=== PATIENT | female | born 1960 | race Caucasian/White ===

== ENCOUNTER 2019-11-19 15:30 | Observation (INO) | payer BC, MEDICARE ==
--- NOTE | 2019-11-19 16:24 | EDM.PDOC ---
ED [facility] GENERAL MEDICAL PROBLEM - General Chief Complaint: Chest Pain Stated Complaint: CHEST PAIN Time Seen by Provider: 11/19/19 16:20 Source of Information: Reports: Patient History Limitations: Reports: No Limitations - History of Present Illness INITIAL COMMENTS - FREE TEXT/NARRATIVE: Patient is a 51-year-old female with a past medical history of obesity, diabetes , ischemic heart disease presenting with a chief complaint of chest discomfort. Patient states she had 2 episodes of chest discomfort associated with nausea and shortness of breath. Symptoms started at rest. The symptoms were relieved by sublingual nitroglycerin. Patient is currently pain-free. Patient states she does not normally get the symptoms and last felt this approximately 9 months ago. Patient denies recent illness, fevers, cough, lower extremity swelling, recent travel. In addition to that documented in the HPI above, the additional ROS was obtained : Constitutional: Denies fevers or chills Eyes: Denies vision changes ENMT: Denies sore throat CV: Per HPI Resp: Per HPI GI: Denies vomiting or diarrhea : Denies painful urination MSK: Denies recent trauma Skin: Denies new rashes Neuro: Denies new numbness or tingling or weakness Endocrine: Denies unexpected weight loss Heme: Denies bleeding disorders I have reviewed the triage vital signs Const: Well nourished, well developed, appears stated age Eyes: PERRL, no conjunctival injection HENT: NCAT, Neck supple without meningismus CV: RRR, Warm, well-perfused extremities RESP: CTAB, Unlabored respiratory effort GI: soft, non-tender, non-distended, no masses MSK: No gross deformities appreciated Skin: Warm, dry. No rashes Neuro: Alert, slate handler II-XII grossly intact. Sensation and motor function of extremities grossly intact. Psych: Appropriate mood and affect Assessment and plan: Patient is a 59-year-old female presenting with chest pain. Chest pain is highly concerning for unstable angina versus acute coronary syndrome. Patient' s EKG on arrival to the emergency room was nonischemic with possible Q waves in V1 and V2. However, patient does have a history of septal OR. I believe these findings are old. Patient's labs including troponin were within normal limits. Chest x-ray was negative. Other considerations were pulmonary embolism however patient does not have any major PE risk factors. Aortic dissection was considered however seems unlikely based on the nature of history and exam. Patient has a heart score of 6 and will require observation on telemetry in the hospital. - Related Data Allergies Allergy/AdvReac Type Severity Reaction Status Date / Time atenolol Allergy Other Verified 11/19/19 15:36 lisinopril Allergy Cough Verified 11/19/19 15:36 Penicillins Allergy Airway Verified 11/19/19 15:36 Tightness Home Meds: Home Meds Aspirin [Adult Low Dose Aspirin EC] 81 mg PO DAILY 11/19/19 [History] Gabapentin [Neurontin] 600 mg PO TID 11/19/19 [History] Levothyroxine Sodium [Synthroid] 75 mcg PO DAILY 11/19/19 [History] Omeprazole Magnesium [Prilosec Otc] 40 mg PO DAILY 11/19/19 [History] Sertraline [Zoloft] 100 mg PO DAILY 11/19/19 [History] Sucralfate [Carafate] 1 gm PO QID 11/19/19 [History] metFORMIN [Glucophage XR] 500 mg PO BID 11/19/19 [History] Past Medical History Psychiatric History: Reports: Depression Endocrine/Metabolic History: Reports: Diabetes, Type II, Hypothyroidism - Infectious Disease History Infectious Disease History: Reports: Chicken Pox, Measles - Past Surgical History GI Surgical History: Reports: Bariatric Procedure Musculoskeletal Surgical History: Reports: Shoulder Replacement Social & Family History - Family History Family Medical History: Noncontributory - Tobacco Use Smoking Status *Q: Former Smoker Used Tobacco, but Quit: Yes Month/Year Tobacco Last Used: 2004 - Caffeine Use Caffeine Use: Reports: None - Recreational Drug Use Recreational Drug Use: Yes Recreational Drug Type: Reports: Marijuana/Hashish Recreational Drug Use Frequency: Weekly ED ROS GENERAL - Review of Systems Review Of Systems: See Below ED EXAM, GENERAL - Physical Exam Exam: See Below Course - Vital Signs Last Recorded V/S: Last Vital Signs Temp 36.1 C 11/19/19 15:39 Pulse 59 L 11/19/19 16:25 Resp 18 11/19/19 16:25 BP 159/91 H 11/19/19 16:25 Pulse Ox 98 11/19/19 16:25 - Orders/Labs/Meds Orders: Active Orders 24 hr Category Date Time Status Admission Status [Patient Status] [ADT] Stat ADT 11/19/19 16:59 Active EKG 12 Lead [EKG Documentation Completion] [RC] STAT Care 11/19/19 15:45 Active Labs: Laboratory Tests 11/19/19 11/19/19 Range/Units 15:40 15:40 WBC 6.65 (4.0-11.0) K/uL RBC 5.14 (4.30-5.90) M/uL Hgb 14.8 (12.0-16.0) g/dL Hct 44.7 (36.0-46.0) % MCV 87.0 (80.0-98.0) fL MCH 28.8 (27.0-32.0) pg MCHC 33.1 (31.0-37.0) g/dL RDW Std Deviation 42.9 (28.0-62.0) fl RDW Coeff of Grupo 13 (11.0-15.0) % Plt Count 203 (150-400) K/uL MPV 10.00 (7.40-12.00) fL Neut % (Auto) 51.5 (48.0-80.0) % Lymph % (Auto) 33.5 (16.0-40.0) % [place] % (Auto) 9.3 (0.0-15.0) % Eos % (Auto) 5.1 (0.0-7.0) % Baso % (Auto) 0.6 (0.0-1.5) % Neut # (Auto) 3.4 (1.4-5.7) K/uL Lymph # (Auto) 2.2 (0.6-2.4) K/uL [place] # (Auto) 0.6 (0.0-0.8) K/uL Eos # (Auto) 0.3 (0.0-0.7) K/uL Baso # (Auto) 0.0 (0.0-0.1) K/uL Nucleated RBC % 0.0 /100WBC Nucleated RBCs # 0 K/uL Sodium 144 (136-145) mmol/L Potassium 4.3 (3.5-5.1) mmol/L Chloride 106 (98-107) mmol/L Carbon Dioxide 28.6 (21.0-32.0) mmol/L BUN 15 (7.0-18.0) mg/dL Creatinine 0.9 (0.6-1.0) mg/dL Est Cr Clr Drug Dosing 63.78 mL/min Estimated GFR (MDRD) > 60.0 ml/min Glucose 94 (74-106) mg/dL Calcium 9.2 (8.5-10.1) mg/dL Total Bilirubin 0.3 (0.2-1.0) mg/dL AST 24 (15-37) IU/L ALT 28 (14-63) IU/L Alkaline Phosphatase 98 (46-116) U/L Troponin I < 0.050 (0.000-0.056) ng/mL Total Protein 7.8 (6.4-8.2) g/dL Albumin 3.8 (3.4-5.0) g/dL Globulin 4.0 (2.6-4.0) g/dL Albumin/Globulin Ratio 0.9 (0.9-1.6) Meds: Medications Discontinued Medications Generic Name Dose Route Start Last Admin Trade Name Freq PRN Reason Stop Dose Admin Ondansetron HCl 4 mg 11/19/19 17:08 11/19/19 17:15 Zofran IVPUSH 11/19/19 17:09 4 mg ONETIME ONE Administration Departure - Departure Time of Disposition: 17:24 Disposition: Refer to Observation Clinical Impression: Chest pain Referrals: PCP,Not In Area [Primary Care Provider] - Forms: ED Department Discharge Sepsis Event Note - Evaluation Sepsis Screening Result: No Definite Risk - Focused Exam Vital Signs: Vital Signs Temp Pulse Resp BP Pulse Ox 11/19/19 16:25 59 L 18 159/91 H 98 11/19/19 15:39 36.1 C 77 18 178/77 H 97 Date Exam was Performed: 11/19/19 Time Exam was Performed: 17:23 - My Orders Last 24 Hours: My Active Orders 11/19/19 15:45 EKG 12 Lead [EKG Documentation Completion] [RC] STAT 11/19/19 16:59 Admission Status [Patient Status] [ADT] Stat - Assessment/Plan Last 24 Hours: My Active Orders 11/19/19 15:45 EKG 12 Lead [EKG Documentation Completion] [RC] STAT 11/19/19 16:59 Admission Status [Patient Status] [ADT] Stat
[2019-11-19 16:34] LABS: BLOOD UREA NITROGEN,BUN 15 mg/dL (7.0-18.0); CARBON DIOXIDE,CO2 28.6 mmol/L (21.0-32.0); CHLORIDE,CL 106 mmol/L (98-107); GLUCOSE RANDOM 94 mg/dL (74-106); POTASSIUM,K 4.3 mmol/L (3.5-5.1); SODIUM,NA 144 mmol/L (136-145)
--- NOTE | 2019-11-19 16:56 | CR ---
Chest: Portable view of the chest was obtained. Comparison: No previous chest x-rays available. Heart size and mediastinum are normal. Lungs are clear. Left shoulder prosthesis is noted. Degenerative endplate spurring is seen within the spine with mild scoliosis. Impression: 1. Nothing acute is appreciated on portable chest x-ray. Diagnostic code #2 This report was dictated in [place] Standard Time
[2019-11-19] MEDS ORDERED: Ondansetron 4 MG/2 ML SDV IVPUSH ONE (17:08)
[2019-11-19] MEDS ORDERED: Heparin Sodium 5,000 Units/ML Vial IVPUSH ONE (17:53)
[2019-11-19] MEDS ORDERED: Melatonin 3 MG Tab PO PRN (17:55)
[2019-11-19] MEDS: Pantoprazole 40 MG Tab.CR PO SCH (18:41)
[2019-11-19] MEDS: Sucralfate 1 GM Tab PO SCH (18:41)
--- NOTE | 2019-11-19 18:41 | PCM.HP.2 ---
<Odette He - Last Filed: 11/19/19 20:24> H&P History of Present Illness - General Date of Service: 11/19/19 Admit Problem/Dx: Admission Diagnosis/Problem Admission Diagnosis/Problem Chest pain Source of Information: Patient History Limitations: Reports: No Limitations - History of Present Illness Initial Comments - Free Text/Narative: Patient is a 59-year-old female with a significant past medical history of diabetes, hypothyroidism, chronic GI bleed, depression, chronic back pain, concerns for previous anterior septal [place]: presenting today for experiencing a episode of 4 out of 10 substernal chest pain, nonradiating for 10 to 15 minutes. Patient endorses using 1 dose of nitro-glycerin with relief of pain; however developed similar pain 40 minutes thereafter. Patient took another dose of nitroglycerin and proceeded to the emergency department. Mentions having similar episodes within the past 12 months; was seen by Dr. Ochoa of cardiology in [facility] [place] for which a catheterization was performed; showing no blockages of the coronary arteries. Patient also has a chronic GI ulcer for which she has been scoped in August 2019: EGD and colonoscopy; showing a chronic healing ulcer on EGD; negative H. pylori; patient was continued on PPI and sucralfate treatment moving forward. Mentions this is possibly from her overuse of NSAIDs. ED course: Negative troponin. Unremarkable labs. Chest x-ray negative. Blood pressure marginally elevated/no history of hypertension. Bedside; patient denying any pain now. Denies any fevers, chills, body aches, recent diarrhea, constipation. No other acute issues at this time - Related Data Allergies/Adverse Reactions: Allergies Allergy/AdvReac Type Severity Reaction Status Date / Time atenolol Allergy Other Verified 11/19/19 18:27 lisinopril Allergy Cough Verified 11/19/19 18:27 Penicillins Allergy Airway Verified 11/19/19 18:27 Tightness Sulfa (Sulfonamide Allergy Rash Verified 11/19/19 18:27 Antibiotics) Home Medications: Home Meds Aspirin [Adult Low Dose Aspirin EC] 81 mg PO DAILY 11/19/19 [History] Cyclobenzaprine [Flexeril] 10 mg PO ASDIRECTED PRN 11/19/19 [History] Famotidine 40 mg PO BEDTIME 11/19/19 [History] Gabapentin [Neurontin] 600 mg PO TID 11/19/19 [History] Levothyroxine Sodium [Synthroid] 75 mcg PO DAILY 11/19/19 [History] Omeprazole Magnesium [Prilosec Otc] 40 mg PO DAILY 11/19/19 [History] Sertraline [Zoloft] 100 mg PO DAILY 11/19/19 [History] Sucralfate [Carafate] 1 gm PO QID 11/19/19 [History] metFORMIN [Glucophage XR] 500 mg PO BID 11/19/19 [History] Past Medical History Other Cardiovascular History: Ischemic heart disease - patient had cardiac cath but vessels were open. Respiratory History: Reports: Asthma, COPD Gastrointestinal History: Reports: GI Bleed Other Gastrointestinal History: Patient currently has a bleeding ulcer. Psychiatric History: Reports: Depression Endocrine/Metabolic History: Reports: Diabetes, Type II, Hypothyroidism - Infectious Disease History Infectious Disease History: Reports: Chicken Pox, Measles - Past Surgical History GI Surgical History: Reports: Bariatric Procedure Musculoskeletal Surgical History: Reports: Shoulder Replacement Other Musculoskeletal Surgeries/Procedures:: Left total shoulder replacement Social & Family History - Family History Family Medical History: Noncontributory - Tobacco Use Smoking Status *Q: Former Smoker Used Tobacco, but Quit: Yes Month/Year Tobacco Last Used: 2004 - Caffeine Use Caffeine Use: Reports: Coffee Caffeine Use Comment: 5 cups a day - Recreational Drug Use Recreational Drug Use: No Recreational Drug Type: Reports: Marijuana/Hashish Recreational Drug Use Frequency: Weekly H&P Review of Systems - Review of Systems: Review Of Systems: See Below General: Denies: Fever, Chills, Malaise, Weakness, Fatigue HEENT: Reports: No Symptoms. Denies: Headaches Pulmonary: Denies: Shortness of Breath, Wheezing, Cough Cardiovascular: Denies: Chest Pain, Palpitations, Dyspnea on Exertion, Edema, Syncope Gastrointestinal: Denies: Abdominal Pain, Constipation, Diarrhea, Decreased Appetite, Nausea Genitourinary: Reports: No Symptoms. Denies: Dysuria, Frequency, Burning, Pain , Urgency, Incontinence Musculoskeletal: Reports: No Symptoms Skin: Reports: No Symptoms Psychiatric: Reports: No Symptoms Neurological: Reports: No Symptoms ( chronic hx. of GI bleed ) Exam - Exam Exam: See Below - Vital Signs Vital Signs: Last Vital Signs Temp 96.7 F 11/19/19 18:08 Pulse 61 11/19/19 18:08 Resp 14 11/19/19 18:08 BP 150/76 H 11/19/19 18:08 Pulse Ox 98 11/19/19 18:08 Weight: 112.355 kg - Exam General: Alert, Oriented, Cooperative HEENT: EOMI, Pupils Equal, Pupils Reactive Neck: Supple, Trachea Midline Lungs: Clear to Auscultation, Normal Respiratory Effort Cardiovascular: Regular Rate, Regular Rhythm GI/Abdominal Exam: Other (epigastric tenderness; no rebound tenderness. no organomegaly ) Back Exam: Normal Inspection, Full Range of Motion. No: Paraspinal Tenderness, Vertebral Tenderness Extremities: Non-Tender, No Pedal Edema Skin: Warm, Dry Neurological: Cranial Nerves Intact Neuro Extensive - Mental Status: Alert, Oriented x3, Normal Mood/Affect Psychiatric: Alert, Normal Affect, Normal Mood - Patient Data Lab Results Last 24 hrs: Laboratory Results - last 24 hr 11/19/19 11/19/19 11/19/19 Range/Units 15:40 15:40 18:24 WBC 6.65 (4.0-11.0) K/uL RBC 5.14 (4.30-5.90) M/uL Hgb 14.8 (12.0-16.0) g/dL Hct 44.7 (36.0-46.0) % MCV 87.0 (80.0-98.0) fL MCH 28.8 (27.0-32.0) pg MCHC 33.1 (31.0-37.0) g/dL RDW Std Deviation 42.9 (28.0-62.0) fl RDW Coeff of Grupo 13 (11.0-15.0) % Plt Count 203 (150-400) K/uL MPV 10.00 (7.40-12.00) fL Neut % (Auto) 51.5 (48.0-80.0) % Lymph % (Auto) 33.5 (16.0-40.0) % [place] % (Auto) 9.3 (0.0-15.0) % Eos % (Auto) 5.1 (0.0-7.0) % Baso % (Auto) 0.6 (0.0-1.5) % Neut # (Auto) 3.4 (1.4-5.7) K/uL Lymph # (Auto) 2.2 (0.6-2.4) K/uL [place] # (Auto) 0.6 (0.0-0.8) K/uL Eos # (Auto) 0.3 (0.0-0.7) K/uL Baso # (Auto) 0.0 (0.0-0.1) K/uL Nucleated RBC % 0.0 /100WBC Nucleated RBCs # 0 K/uL Sodium 144 (136-145) mmol/L Potassium 4.3 (3.5-5.1) mmol/L Chloride 106 (98-107) mmol/L Carbon Dioxide 28.6 (21.0-32.0) mmol/L BUN 15 (7.0-18.0) mg/dL Creatinine 0.9 (0.6-1.0) mg/dL Est Cr Clr Drug Dosing 63.78 mL/min Estimated GFR (MDRD) > 60.0 ml/min Glucose 94 (74-106) mg/dL POC Glucose 85 (60-110) mg/dL Calcium 9.2 (8.5-10.1) mg/dL Total Bilirubin 0.3 (0.2-1.0) mg/dL AST 24 (15-37) IU/L ALT 28 (14-63) IU/L Alkaline Phosphatase 98 (46-116) U/L Troponin I < 0.050 (0.000-0.056) ng/mL Total Protein 7.8 (6.4-8.2) g/dL Albumin 3.8 (3.4-5.0) g/dL Globulin 4.0 (2.6-4.0) g/dL Albumin/Globulin Ratio 0.9 (0.9-1.6) Result Diagrams: 11/19/19 15:40 11/19/19 15:40 Sepsis Event Note - Evaluation Sepsis Screening Result: No Definite Risk - Focused Exam Vital Signs: Vital Signs Temp Pulse Resp BP Pulse Ox 11/19/19 18:08 96.7 F 61 14 150/76 H 98 11/19/19 17:35 62 18 152/83 H 97 11/19/19 16:25 59 L 18 159/91 H 98 11/19/19 15:39 96.9 F 77 18 178/77 H 97 Date Exam was Performed: 11/19/19 Time Exam was Performed: 20:24 Problem List Initiated/Reviewed/Updated: Yes Orders Last 24hrs: Active Orders 24 hr Category Date Time Status Admission Status [Patient Status] [ADT] Stat ADT 11/19/19 16:59 Active Activity as Tolerated [RC] .Routine Care 11/19/19 17:52 Active Antiembolic Devices [RC] PER UNIT ROUTINE Care 11/19/19 17:55 Active EKG 12 Lead [EKG Documentation Completion] [RC] STAT Care 11/19/19 15:45 Active [employer] Diet [DIET] Diet 11/19/19 Dinner Active TROPONIN I [CHEM] Q3H Lab 11/19/19 18:21 Received TROPONIN I [CHEM] Q3H Lab 11/19/19 21:05 Ordered Aspirin [Halfprin] Med 11/20/19 09:00 Active 81 mg PO DAILY Gabapentin [Neurontin] Med 11/19/19 22:00 Active 600 mg PO TID Levothyroxine Med 11/20/19 07:00 Active 75 mcg PO DAILY Melatonin Med 11/19/19 17:55 Active 3 mg PO BEDTIME PRN Pantoprazole [ProTONIX] Med 11/19/19 18:00 Active 40 mg PO DAILY Sertraline [Zoloft] Med 11/20/19 09:00 Active 100 mg PO DAILY Sucralfate [Carafate] Med 11/19/19 18:00 Active 1 gm PO QID metFORMIN [Glucophage XR] Med 11/19/19 21:00 Active 500 mg PO BID SCD [Sequential Compression Device] [OM.PC] Routine Oth 11/19/19 17:55 Ordered Code Status [Resuscitation Status] Routine Resus Stat 11/19/19 17:52 Ordered Medication Orders Aspirin (Halfprin) 81 mg PO DAILY CED Gabapentin (Neurontin) 600 mg PO TID CED Levothyroxine Sodium (Levothyroxine) 75 mcg PO DAILY CED Melatonin (Melatonin) 3 mg PO BEDTIME PRN PRN Reason: Insomnia Metformin HCl (Glucophage Xr) 500 mg PO BID CED Pantoprazole Sodium (Protonix) 40 mg PO DAILY CED Sertraline HCl (Zoloft) 100 mg PO DAILY CED Sucralfate (Carafate) 1 gm PO QID CED Assessment/Plan Comment:: Assessment 1. Chest pain: Acute coronary syndrome rule out 2. Past medical history: Type 2 diabetes, hypothyroidism, chronic GI ulcer, depression, chronic back pain Plan Admit to observation. Full code. Activity; up ad renita.. GI prophylaxis; pantoprazole 40. DVT prophylaxis; SCDs. Diet: Diabetic 1. Troponin every 3 hours x3. Repeat labs in a.m. continue to monitor patient on telemetry. Replete electrolytes as needed. Continue daily aspirin. SCDs. 2. Continue home medication except metformin: NovoLog with 3 times daily sliding scale. A1c added. We will also check a TSH. 3. Patient understood plan. <Yo Andrews - Last Filed: 11/23/19 20:42> H&P History of Present Illness - General Admit Problem/Dx: Admission Diagnosis/Problem Admission Diagnosis/Problem Chest pain Exam - Vital Signs Vital Signs: Last Vital Signs Temp 36.4 C 11/20/19 07:15 Pulse 69 11/20/19 08:40 Resp 16 11/20/19 08:40 BP 113/71 11/20/19 08:40 Pulse Ox 96 11/20/19 08:40 - Patient Data Result Diagrams: 11/20/19 05:40 11/20/19 05:40 Assessment/Plan Comment:: I performed a history and physical exam of the patient and discussed management with resident. I have reviewed the residents note and agree with documented findings and plan unless otherwise specified in my note.
[2019-11-19] MEDS ORDERED: Morphine 2 MG/ML Syringe IVPUSH PRN (19:18)
[2019-11-19] MEDS ORDERED: Acetaminophen 325 MG Tab PO PRN (19:19)
[2019-11-19] MEDS ORDERED: Ondansetron 4 MG Tab.DIS PO PRN (19:20)
[2019-11-19 19:43] LABS: HEMOGLOBIN A1C 5.9 % (4.5-6.2)
[2019-11-19] MEDS ORDERED: metFORMIN 500 MG Tab.ER PO SCH (21:00)
[2019-11-19] MEDS: Gabapentin 300 MG Cap PO SCH (22:02)
[2019-11-20] MEDS: Sucralfate 1 GM Tab PO SCH ×3 (00:46→11:43)
[2019-11-20] MEDS: Levothyroxine 25 MCG Tab PO SCH ×2 (06:14→08:38)
[2019-11-20] MEDS: Gabapentin 300 MG Cap PO SCH (06:14)
[2019-11-20 06:24] LABS: BLOOD UREA NITROGEN,BUN 18 mg/dL (7.0-18.0); CARBON DIOXIDE,CO2 31.5 mmol/L (21.0-32.0); CHLORIDE,CL 107 mmol/L (98-107); GLUCOSE RANDOM 100 mg/dL (74-106); POTASSIUM,K 4.5 mmol/L (3.5-5.1); SODIUM,NA 146 mmol/L (136-145)
[2019-11-20] MEDS: Insulin Aspart 100 Units/ML 3 ML Pen SUBCUT SCH ×2 (07:46→11:57)
[2019-11-20] MEDS: Pantoprazole 40 MG Tab.CR PO SCH (08:42)
[2019-11-20] MEDS ORDERED: Sertraline 25 MG Tab PO SCH (09:00)
[2019-11-20] MEDS ORDERED: Aspirin 81 MG Tab.EC PO SCH (09:00)
--- NOTE | 2019-11-20 11:30 | PCM.DCSUM1 ---
<Odette He - Last Filed: 11/20/19 14:28> Discharge Summary - Hospital Course Free Text/Narrative:: Discharge summary Admission diagnoses: Chest pain/acute coronary syndrome rule out Past medical history: Chronic GI ulcer, type 2 diabetes, hypothyroidism, morbid obesity Consultations: None Procedures: None Hospital course: Patient is a 59-year-old female with significant past medical history of type 2 diabetes, chronic GI ulcer, hypothyroidism: Presenting with 2 episodes of substernal nonradiating chest pain for which she used nitroglycerin at home. ED course: Troponin x3-; EKG showed concerns for previous old anteroseptal IN infarct; however patient has a history of catheterizations with no clot formation coronary arteries. Patient throughout her stay was afebrile and asymptomatic. Overnight patient did have one episode of dizziness; however glucose was nominal, blood pressure and vitals are stable, troponin negative; episode most likely vasovagal in nature; patient did not have any more chest pain dizziness or issues walk around or ambulating. Patient clinically stable, labs unremarkable. Patient was eating, urinating and stooling without issue; requesting to go home. Patient discharged and advised to follow-up with PCP and outpatient cardiology. Patient also advised to follow-up gastroenterology to evaluate for changes in chronic GI ulcer. Discharge condition: Stable Disposition: Home Discharge medications: Continue home medications Follow-up: PCP Cardiology - Discharge Data Discharge Date: 11/20/19 Discharge Disposition: Home, Self-Care 01 Condition: Stable - Referral to Home Health Primary Care Physician: PCP Not In Area - Discharge Plan Home Medications: Home Meds Aspirin [Adult Low Dose Aspirin EC] 81 mg PO DAILY 11/19/19 [History] Cyclobenzaprine [Flexeril] 10 mg PO ASDIRECTED PRN 11/19/19 [History] Famotidine 40 mg PO BEDTIME 11/19/19 [History] Gabapentin [Neurontin] 600 mg PO TID 11/19/19 [History] Levothyroxine Sodium [Synthroid] 75 mcg PO DAILY 11/19/19 [History] Omeprazole Magnesium [Prilosec Otc] 40 mg PO DAILY 11/19/19 [History] Sertraline [Zoloft] 100 mg PO DAILY 11/19/19 [History] Sucralfate [Carafate] 1 gm PO QID 11/19/19 [History] metFORMIN [Glucophage XR] 500 mg PO BID 11/19/19 [History] Patient Handouts: Nonspecific Chest Pain, [id number] Referrals: Judith Vo NP [Ordering Only Provider] - 12/02/19 12:20 pm (This was the last business intern you have seen since Dr. Atkins. Arrive 15 minutes early with a photo ID and insurance card. ) - Discharge Summary/Plan Comment DC Time >30 min.: No - Patient Data Vitals - Most Recent: Last Vital Signs Temp 97.5 F 11/20/19 07:15 Pulse 69 11/20/19 08:40 Resp 16 11/20/19 08:40 BP 113/71 11/20/19 08:40 Pulse Ox 96 11/20/19 08:40 Weight - Most Recent: 112.355 kg I&O - Last 24 hours: Intake & Output 11/19/19 11/20/19 11/20/19 22:59 06:59 14:59 Intake Total 600 Output Total 1290 Balance -690 Lab Results - Last 24 hrs: Laboratory Results - last 24 hr 11/19/19 11/19/19 11/19/19 Range/Units 15:40 15:40 18:21 WBC 6.65 (4.0-11.0) K/uL RBC 5.14 (4.30-5.90) M/uL Hgb 14.8 (12.0-16.0) g/dL Hct 44.7 (36.0-46.0) % MCV 87.0 (80.0-98.0) fL MCH 28.8 (27.0-32.0) pg MCHC 33.1 (31.0-37.0) g/dL RDW Std Deviation 42.9 (28.0-62.0) fl RDW Coeff of Grupo 13 (11.0-15.0) % Plt Count 203 (150-400) K/uL MPV 10.00 (7.40-12.00) fL Neut % (Auto) 51.5 (48.0-80.0) % Lymph % (Auto) 33.5 (16.0-40.0) % [place] % (Auto) 9.3 (0.0-15.0) % Eos % (Auto) 5.1 (0.0-7.0) % Baso % (Auto) 0.6 (0.0-1.5) % Neut # (Auto) 3.4 (1.4-5.7) K/uL Lymph # (Auto) 2.2 (0.6-2.4) K/uL [place] # (Auto) 0.6 (0.0-0.8) K/uL Eos # (Auto) 0.3 (0.0-0.7) K/uL Baso # (Auto) 0.0 (0.0-0.1) K/uL Nucleated RBC % 0.0 /100WBC Nucleated RBCs # 0 K/uL Sodium 144 (136-145) mmol/L Potassium 4.3 (3.5-5.1) mmol/L Chloride 106 (98-107) mmol/L Carbon Dioxide 28.6 (21.0-32.0) mmol/L BUN 15 (7.0-18.0) mg/dL Creatinine 0.9 (0.6-1.0) mg/dL Est Cr Clr Drug Dosing 63.78 mL/min Estimated GFR (MDRD) > 60.0 ml/min Glucose 94 (74-106) mg/dL POC Glucose (60-110) mg/dL Hemoglobin A1c (4.5-6.2) % Calcium 9.2 (8.5-10.1) mg/dL Magnesium (1.8-2.4) mg/dL Total Bilirubin 0.3 (0.2-1.0) mg/dL AST 24 (15-37) IU/L ALT 28 (14-63) IU/L Alkaline Phosphatase 98 (46-116) U/L Troponin I < 0.050 < 0.050 (0.000-0.056) ng/mL Total Protein 7.8 (6.4-8.2) g/dL Albumin 3.8 (3.4-5.0) g/dL Globulin 4.0 (2.6-4.0) g/dL Albumin/Globulin Ratio 0.9 (0.9-1.6) TSH 3rd Generation (0.36-3.74) uIU/mL 11/19/19 11/19/19 11/19/19 Range/Units 18:21 18:21 18:24 WBC (4.0-11.0) K/uL RBC (4.30-5.90) M/uL Hgb (12.0-16.0) g/dL Hct (36.0-46.0) % MCV (80.0-98.0) fL MCH (27.0-32.0) pg MCHC (31.0-37.0) g/dL RDW Std Deviation (28.0-62.0) fl RDW Coeff of Grupo (11.0-15.0) % Plt Count (150-400) K/uL MPV (7.40-12.00) fL Neut % (Auto) (48.0-80.0) % Lymph % (Auto) (16.0-40.0) % [place] % (Auto) (0.0-15.0) % Eos % (Auto) (0.0-7.0) % Baso % (Auto) (0.0-1.5) % Neut # (Auto) (1.4-5.7) K/uL Lymph # (Auto) (0.6-2.4) K/uL [place] # (Auto) (0.0-0.8) K/uL Eos # (Auto) (0.0-0.7) K/uL Baso # (Auto) (0.0-0.1) K/uL Nucleated RBC % /100WBC Nucleated RBCs # K/uL Sodium (136-145) mmol/L Potassium (3.5-5.1) mmol/L Chloride (98-107) mmol/L Carbon Dioxide (21.0-32.0) mmol/L BUN (7.0-18.0) mg/dL Creatinine (0.6-1.0) mg/dL Est Cr Clr Drug Dosing mL/min Estimated GFR (MDRD) ml/min Glucose (74-106) mg/dL POC Glucose 85 (60-110) mg/dL Hemoglobin A1c 5.9 (4.5-6.2) % Calcium (8.5-10.1) mg/dL Magnesium 2.1 (1.8-2.4) mg/dL Total Bilirubin (0.2-1.0) mg/dL AST (15-37) IU/L ALT (14-63) IU/L Alkaline Phosphatase (46-116) U/L Troponin I (0.000-0.056) ng/mL Total Protein (6.4-8.2) g/dL Albumin (3.4-5.0) g/dL Globulin (2.6-4.0) g/dL Albumin/Globulin Ratio (0.9-1.6) TSH 3rd Generation 1.92 (0.36-3.74) uIU/mL 11/19/19 11/19/19 11/20/19 Range/Units 20:47 21:10 05:40 WBC 5.43 (4.0-11.0) K/uL RBC 4.63 (4.30-5.90) M/uL Hgb 13.1 (12.0-16.0) g/dL Hct 40.8 (36.0-46.0) % MCV 88.1 (80.0-98.0) fL MCH 28.3 (27.0-32.0) pg MCHC 32.1 (31.0-37.0) g/dL RDW Std Deviation 42.5 (28.0-62.0) fl RDW Coeff of Grupo 13 (11.0-15.0) % Plt Count 176 (150-400) K/uL MPV 10.00 (7.40-12.00) fL Neut % (Auto) 44.5 L (48.0-80.0) % Lymph % (Auto) 41.1 H (16.0-40.0) % [place] % (Auto) 7.4 (0.0-15.0) % Eos % (Auto) 6.4 (0.0-7.0) % Baso % (Auto) 0.6 (0.0-1.5) % Neut # (Auto) 2.4 (1.4-5.7) K/uL Lymph # (Auto) 2.2 (0.6-2.4) K/uL [place] # (Auto) 0.4 (0.0-0.8) K/uL Eos # (Auto) 0.4 (0.0-0.7) K/uL Baso # (Auto) 0.0 (0.0-0.1) K/uL Nucleated RBC % 0.0 /100WBC Nucleated RBCs # 0 K/uL Sodium (136-145) mmol/L Potassium (3.5-5.1) mmol/L Chloride (98-107) mmol/L Carbon Dioxide (21.0-32.0) mmol/L BUN (7.0-18.0) mg/dL Creatinine (0.6-1.0) mg/dL Est Cr Clr Drug Dosing mL/min Estimated GFR (MDRD) ml/min Glucose (74-106) mg/dL POC Glucose 105 (60-110) mg/dL Hemoglobin A1c (4.5-6.2) % Calcium (8.5-10.1) mg/dL Magnesium (1.8-2.4) mg/dL Total Bilirubin (0.2-1.0) mg/dL AST (15-37) IU/L ALT (14-63) IU/L Alkaline Phosphatase (46-116) U/L Troponin I < 0.050 (0.000-0.056) ng/mL Total Protein (6.4-8.2) g/dL Albumin (3.4-5.0) g/dL Globulin (2.6-4.0) g/dL Albumin/Globulin Ratio (0.9-1.6) TSH 3rd Generation (0.36-3.74) uIU/mL 11/20/19 11/20/19 Range/Units 05:40 06:45 WBC (4.0-11.0) K/uL RBC (4.30-5.90) M/uL Hgb (12.0-16.0) g/dL Hct (36.0-46.0) % MCV (80.0-98.0) fL MCH (27.0-32.0) pg MCHC (31.0-37.0) g/dL RDW Std Deviation (28.0-62.0) fl RDW Coeff of Grupo (11.0-15.0) % Plt Count (150-400) K/uL MPV (7.40-12.00) fL Neut % (Auto) (48.0-80.0) % Lymph % (Auto) (16.0-40.0) % [place] % (Auto) (0.0-15.0) % Eos % (Auto) (0.0-7.0) % Baso % (Auto) (0.0-1.5) % Neut # (Auto) (1.4-5.7) K/uL Lymph # (Auto) (0.6-2.4) K/uL [place] # (Auto) (0.0-0.8) K/uL Eos # (Auto) (0.0-0.7) K/uL Baso # (Auto) (0.0-0.1) K/uL Nucleated RBC % /100WBC Nucleated RBCs # K/uL Sodium 146 H (136-145) mmol/L Potassium 4.5 (3.5-5.1) mmol/L Chloride 107 (98-107) mmol/L Carbon Dioxide 31.5 (21.0-32.0) mmol/L BUN 18 (7.0-18.0) mg/dL Creatinine 1.1 H (0.6-1.0) mg/dL Est Cr Clr Drug Dosing 52.19 mL/min Estimated GFR (MDRD) 51.0 ml/min Glucose 100 (74-106) mg/dL POC Glucose 82 (60-110) mg/dL Hemoglobin A1c (4.5-6.2) % Calcium 8.9 (8.5-10.1) mg/dL Magnesium (1.8-2.4) mg/dL Total Bilirubin 0.4 (0.2-1.0) mg/dL AST 19 (15-37) IU/L ALT 25 (14-63) IU/L Alkaline Phosphatase 81 (46-116) U/L Troponin I < 0.050 (0.000-0.056) ng/mL Total Protein 6.8 (6.4-8.2) g/dL Albumin 3.3 L (3.4-5.0) g/dL Globulin 3.5 (2.6-4.0) g/dL Albumin/Globulin Ratio 0.9 (0.9-1.6) TSH 3rd Generation (0.36-3.74) uIU/mL Med Orders - Current: Current Medications Acetaminophen (Tylenol) 650 mg PO Q6H PRN PRN Reason: Pain Aspirin (Halfprin) 81 mg PO DAILY [facility] Last Admin: 11/20/19 08:42 Dose: 81 mg Gabapentin (Neurontin) 600 mg PO TID [facility] Last Admin: 11/20/19 06:14 Dose: 600 mg Insulin Aspart (Novolog) 0 unit SUBCUT TIDAC [facility]; Protocol Last Admin: 11/20/19 07:46 Dose: Not Given Levothyroxine Sodium (Levothyroxine) 75 mcg PO DAILY [facility] Last Admin: 11/20/19 08:38 Dose: Not Given Melatonin (Melatonin) 3 mg PO BEDTIME PRN PRN Reason: Insomnia Morphine Sulfate (Morphine) 2 mg IVPUSH Q4H PRN PRN Reason: Pain Ondansetron HCl (Zofran Odt) 4 mg PO Q8H PRN PRN Reason: Nausea Pantoprazole Sodium (Protonix) 40 mg PO DAILY [facility] Last Admin: 11/20/19 08:42 Dose: 40 mg Sertraline HCl (Zoloft) 100 mg PO DAILY [facility] Last Admin: 11/20/19 08:59 Dose: 100 mg Sucralfate (Carafate) 1 gm PO QID [facility] Last Admin: 11/20/19 06:14 Dose: 1 gm Discontinued Medications Heparin Sodium (Porcine) (Heparin Sodium) 5,000 units IVPUSH ONETIME ONE Stop: 11/19/19 17:54 Last Admin: 11/19/19 18:57 Dose: Not Given Metformin HCl (Glucophage Xr) 500 mg PO BID [facility] Ondansetron HCl (Zofran) 4 mg IVPUSH ONETIME ONE Stop: 11/19/19 17:09 Last Admin: 11/19/19 17:15 Dose: 4 mg <Yo Andrews - Last Filed: 11/23/19 20:41> Discharge Summary - Hospital Course Free Text/Narrative:: I have seen and evaluated the patient and agree with the residents note unless specified in my note - Referral to Home Health Primary Care Physician: PCP Not In Area - Patient Data Vitals - Most Recent: Last Vital Signs Temp 36.4 C 11/20/19 07:15 Pulse 69 11/20/19 08:40 Resp 16 11/20/19 08:40 BP 113/71 11/20/19 08:40 Pulse Ox 96 11/20/19 08:40 Med Orders - Current: Current Medications Discontinued Medications Acetaminophen (Tylenol) 650 mg PO Q6H PRN PRN Reason: Pain Aspirin (Halfprin) 81 mg PO DAILY [facility] Last Admin: 11/20/19 08:42 Dose: 81 mg Gabapentin (Neurontin) 600 mg PO TID [facility] Last Admin: 11/20/19 06:14 Dose: 600 mg Heparin Sodium (Porcine) (Heparin Sodium) 5,000 units IVPUSH ONETIME ONE Stop: 11/19/19 17:54 Last Admin: 11/19/19 18:57 Dose: Not Given Insulin Aspart (Novolog) 0 unit SUBCUT TIDAC [facility]; Protocol Last Admin: 11/20/19 11:57 Dose: Not Given Levothyroxine Sodium (Levothyroxine) 75 mcg PO DAILY [facility] Last Admin: 11/20/19 08:38 Dose: Not Given Melatonin (Melatonin) 3 mg PO BEDTIME PRN PRN Reason: Insomnia Metformin HCl (Glucophage Xr) 500 mg PO BID [facility] Morphine Sulfate (Morphine) 2 mg IVPUSH Q4H PRN PRN Reason: Pain Ondansetron HCl (Zofran) 4 mg IVPUSH ONETIME ONE Stop: 11/19/19 17:09 Last Admin: 11/19/19 17:15 Dose: 4 mg Ondansetron HCl (Zofran Odt) 4 mg PO Q8H PRN PRN Reason: Nausea Pantoprazole Sodium (Protonix) 40 mg PO DAILY [facility] Last Admin: 11/20/19 08:42 Dose: 40 mg Sertraline HCl (Zoloft) 100 mg PO DAILY [facility] Last Admin: 11/20/19 08:59 Dose: 100 mg Sucralfate (Carafate) 1 gm PO QID [facility] Last Admin: 11/20/19 11:43 Dose: 1 gm
== END 2019-11-20 12:20 | disposition home or self-care (01) ==
LOC: MW.ED 15:30 → MW.MS 16:59
PROVIDERS: ADMIT Student in an Organized Health Care Education/Training Program; ATTEND Student in an Organized Health Care Education/Training Program
DX: R07.2 Precordial pain (principal); E11.9 Type 2 diabetes mellitus without complications; E03.9 Hypothyroidism, unspecified; J44.9 Chronic obstructive pulmonary disease, unspecified; K25.4 Chronic or unspecified gastric ulcer with hemorrhage; E66.01 Morbid (severe) obesity due to excess calories; Z87.891 Personal history of nicotine dependence; Z88.8 Allergy status to other drugs, medicaments and biological substances; Z88.0 Allergy status to penicillin; Z88.2 Allergy status to sulfonamides; Z68.41 Body mass index [BMI] 40.0-44.9, adult
CPT/HCPCS: 36415; 71045; 80053; 82962; 83036; 83735; 84443; 84484; 85025; 93005; A9270; J2405; 96374; 99284; 99285-25; G0378